=== PATIENT | female | born 2000 | race Two or more races ===

== ENCOUNTER 2021-04-09 03:00 | Emergency (ER) | payer SELFPAY ==
[~2021-04-09] VITALS: Ht 160 cm; Wt 38.6 kg
--- NOTE | 2021-04-09 03:15 | NUR ---
PATIENT CAME TO THE ER BED 13 [address]IBRA FROM FRIEND'S HOME C/O "WITHDRAWALS FROM FENTANLY AND XANAX USE". ADMITS TO USAGE OF DRUGS ABOUT 4x DAYS AGO. PATIENT ALERT AND ORIENTED x4. PATIENT IS NOT COOPERATIVE. PATIENT IS BREATHING EVENLY AND UNLABORED ON ROOM AIR. CONNECTED TO THE MONITOR.
--- NOTE | 2021-04-09 03:18 | NUR ---
lapd at bed side
--- NOTE | 2021-04-09 03:21 | NUR ---
PIGEON FANCIER AT BEDSIDE MYLES BLAKE
[2021-04-09 03:32] LABS: BASOPHILS % (AUTO) 0.2 % (0.0-2.0); HEMATOCRIT 39 % (33-45); HEMOGLOBIN 13.3 g/dL (11.5-14.8); LYMPHOCYTES # (AUTO) 1.7 K/uL (0.8-4.8); LYMPHOCYTES % (AUTO) 19.8 % (20.0-44.0); MEAN CORPUSCULAR HGB CONC 34 g/dl (31.0-36.0); MEAN CORPUSCULAR VOLUME 84 fL (82-100); MONOCYTES # (AUTO) 0.6 K/uL (0.1-1.30); MONOCYTES % (AUTO) 6.9 % (2.0-12.0); NEUTROPHILS # (AUTO) 6.4 K/uL (1.8-8.9); NEUTROPHILS % (AUTO) 73.1 % (43.0-81.0); PLATELET COUNT (AUTO) 424 K/uL (150-450); RED BLOOD CELL COUNT(AUTO) 4.65 MIL/uL (4.0-5.2); WHITE BLOOD COUNT (AUTO) 8.8 K/uL (4.3-11.0)
[2021-04-09 03:50] LABS: BILIRUBIN,URINE SMALL (NEGATIVE); COLOR,URINE DARK YELLOW (YELLOW); LEUKOCYTE ESTERASE ,URINE NEGATIVE (NEGATIVE); NITRITE, URINE POSITIVE (NEGATIVE); PROTEIN,URINE 30 mg/dl (NEGATIVE); UGLUCOSE NEGATIVE (NEGATIVE)
[2021-04-09 04:00] LABS: BACTERIA,URINE Many /HPF (None Seen); MUCUS,URINE Few /LPF (None Seen); RBC,URINE 0-2 /HPF (0-2); SQUAMOUS EPITHELIAL CELL,UR Few /HPF (None Seen)
[2021-04-09 04:01] LABS: ALANINE AMINOTRANSFERASE 13 U/L (12-78); ALKALINE PHOSPHATASE 68 U/L (46-116); ASPARTATE AMINOTRANSFERASE 14 U/L (15-37); BILIRUBIN,DIRECT 0.2 mg/dL (0.0-0.2); BILIRUBIN,TOTAL 0.7 mg/dL (0.2-1.0); CARBON DIOXIDE 26 mmol/L (21-32); CHLORIDE 101 mmol/L (98-107); CREATININE 0.7 mg/dL (0.6-1.3); GLUCOSE 93 mg/dL (74-106); POTASSIUM 3.2 mmol/L (3.5-5.1); SODIUM SERUM 139 mmol/L (136-145); TOTAL PROTEIN, SERUM 7.8 g/dL (6.4-8.2); UREA NITROGEN, BLOOD 10 mg/dL (7-18)
[2021-04-09 04:08] LABS: ACETAMINOPHEN < 2 ug/ml (10-30); ALCOHOL, BLOOD < 3 mg/dL (0-0)
[2021-04-09] MEDS ORDERED: NITR100C6 PO (05:08)
--- NOTE | 2021-04-09 07:21 | NUR ---
ASSESSED PT ON BED ASLEEP EASILY AROUSABLE, NOT IN RESPIRATORY DISTRESS, V/S STABLE, KEPT RESTED AND COMFORTABLE. WILL CONTINUE TO MONITOR.
--- NOTE | 2021-04-09 07:50 | NUR ---
PT ABLE TO AMBULATE WITHOUT ASSISTANCE. AWARE.
--- NOTE | 2021-04-09 08:27 | NUR ---
SPOKED TO PT'S DAD UNABLE TO PICK HER UP RIGHT NOW.
--- NOTE | 2021-04-09 08:34 | NUR ---
PER PT DAD WILL CALL SOMEONE TO PICK HER UP WILL CALL BACK FOR UPDATE.
--- NOTE | 2021-04-09 10:40 | NUR ---
Conditioner Tender note: services manager consult requested for polysubstance use. Patient is a 21-year-old, female. SW was unable to interview patient at her bedside in the emergency department. Patient was gathering her belongings to leave as she was being discharged. Patient appeared disheveled. Patient was alert and oriented x4. SW was able to assess patient's needs for community resources. Patient stated that she has a history of Fentanyl and Xanax use. Patient was unwilling to provide SW with more information regarding her drug use. SW offered the patient resources for medication-assisted treatment clinics and additional substance use/addiction resources. Patient accepted the resources and thanked SW. Patient presents in the pre-contemplation stage of change. Patient has not verbalized any intention of seeking support or managing her drug use at this time but was receptive to receiving resources. Patient's affect was flat and patient mood was irritable. Patient is ambulatory. Patient will discharge to home. RESOURCES: [facility]: [address] [place] [address] [facility]: [address], [place] [phone] [facility]: [address] [place], [place] [id number] Substance use resources provided included: [facility] Substance Abuse Self-Helpline (SAS) ; [facility] [address] [facility]. [place] [id number] ; [address] [id number] ; [facility] [address] [address] ; [facility] [address] [facility] [address] ; [address] [address] ; [facility]; [facility] [place]; [facility] [place]; Alcoholics [facility]
--- NOTE | 2021-04-09 10:56 | NUR ---
Patient discharged to home in stable condition. Written and verbal after care instructions given. Patient verbalizes understanding of instruction.
[2021-04-09 10:57] VITALS: BP 122/68
== END 2021-04-09 10:58 | disposition home or self-care (01) ==
LOC: EDSEX 03:03 → ER 03:03
DX: F19.10 Other psychoactive substance abuse, uncomplicated (principal); N39.0 Urinary tract infection, site not specified; Z79.899 Other long term (current) drug therapy
CPT/HCPCS: 36415; 80048-TC; 80076-TC; 81001; 85025-TC; 87086-TC; 87186-TC; G0480